=== PATIENT | female | born 1970 | race Caucasian/White ===

== ENCOUNTER 2018-10-19 16:21 | Emergency (ER) | payer MEDICAID ==
[~2018-10-19] VITALS: Ht 157.5 cm; Wt 65.0 kg
[~2018-10-19 16:21] MED LIST: ACET325T59 PO; DOXY-8 PO; HYDR1TAB PO; NITR100C6 PO; PROC25SU31 RC; VALS40TA2 PO; ZOF4T PO
[2018-10-19 16:28] VITALS: BP 127/82
[2018-10-19] MEDS ORDERED: TETanus/Pertussis (Acell)/Diphther VAC/PF (Tdap-Adult) 0.5ml syringe IM ONE (17:35)
[2018-10-19] MEDS ORDERED: CEPH500C5 PO (17:44)
== END 2018-10-19 17:48 | disposition home or self-care (01) ==
LOC: ER 16:21
DX: S46.812A Strain of other muscles, fascia and tendons at shoulder and upper arm level, left arm, initial encounter (principal); S00.83XA Contusion of other part of head, initial encounter; S69.81XA Other specified injuries of right wrist, hand and finger(s), initial encounter; F15.10 Other stimulant abuse, uncomplicated; I10 Essential (primary) hypertension; F12.10 Cannabis abuse, uncomplicated; Z88.5 Allergy status to narcotic agent; Z88.8 Allergy status to other drugs, medicaments and biological substances; Z79.899 Other long term (current) drug therapy; Z59.0 Homelessness; Y04.0XXA Assault by unarmed brawl or fight, initial encounter; Y93.89 Activity, other specified; Y92.89 Other specified places as the place of occurrence of the external cause; Y99.8 Other external cause status
CPT/HCPCS: 90471; 90715; 99283

== ENCOUNTER 2019-01-14 20:17 | Emergency (ER) | payer MEDICAID ==
[~2019-01-14] VITALS: Ht 157.5 cm; Wt 63.0 kg
[~2019-01-14 20:17] MED LIST changes: +CEPH500C5 PO
[2019-01-14 20:31] VITALS: BP 159/69
[2019-01-14] MEDS ORDERED: SULF1TAB49 PO (20:43)
[2019-01-14] MEDS ORDERED: CEPH500C5 PO (20:43)
== END 2019-01-14 21:03 | disposition home or self-care (01) ==
LOC: ER 20:18
DX: L03.116 Cellulitis of left lower limb (principal); L03.115 Cellulitis of right lower limb; I10 Essential (primary) hypertension; F12.90 Cannabis use, unspecified, uncomplicated; F15.90 Other stimulant use, unspecified, uncomplicated; Z98.890 Other specified postprocedural states; Z56.0 Unemployment, unspecified; Z59.0 Homelessness; Z88.5 Allergy status to narcotic agent; Z88.8 Allergy status to other drugs, medicaments and biological substances; Z79.899 Other long term (current) drug therapy
CPT/HCPCS: 99283

== ENCOUNTER 2019-06-04 21:09 | Emergency (ER) | payer MEDICAID ==
[2019-06-04 21:29] VITALS: BP 129/70
[2019-06-04] MEDS ORDERED: LIDOcaine 1% w/epiNEPHrine 1:200,000 30ml vial IM ONE (21:35)
[2019-06-04] MEDS ORDERED: TETanus/Pertussis (Acell)/Diphther VAC/PF (Tdap-Adult) 0.5ml syringe IM ONE (21:35)
[2019-06-04] MEDS ORDERED: SULF1TAB49 PO (21:52)
== END 2019-06-04 21:59 | disposition home or self-care (01) ==
LOC: ER 21:11
DX: L72.3 Sebaceous cyst (principal); L02.411 Cutaneous abscess of right axilla; I10 Essential (primary) hypertension; F12.90 Cannabis use, unspecified, uncomplicated; F15.90 Other stimulant use, unspecified, uncomplicated; Z98.890 Other specified postprocedural states; Z59.0 Homelessness; Z56.0 Unemployment, unspecified; Z86.14 Personal history of Methicillin resistant Staphylococcus aureus infection; Z79.899 Other long term (current) drug therapy; Z88.6 Allergy status to analgesic agent; Z88.5 Allergy status to narcotic agent
CPT/HCPCS: 10060; 90471; 99283

== ENCOUNTER 2019-07-09 17:12 | Emergency (ER) | payer MEDICAID ==
[~2019-07-09] VITALS: Ht 160 cm; Wt 63.6 kg
[2019-07-09 17:17] VITALS: BP 154/87
== END 2019-07-09 18:37 | disposition home or self-care (01) ==
LOC: ER 17:12
DX: M25.562 Pain in left knee (principal); I10 Essential (primary) hypertension; F12.90 Cannabis use, unspecified, uncomplicated; F15.90 Other stimulant use, unspecified, uncomplicated; F10.99 Alcohol use, unspecified with unspecified alcohol-induced disorder; Z56.0 Unemployment, unspecified; Z59.0 Homelessness; Z86.14 Personal history of Methicillin resistant Staphylococcus aureus infection; Z86.69 Personal history of other diseases of the nervous system and sense organs; Z88.5 Allergy status to narcotic agent; Z79.899 Other long term (current) drug therapy; Z88.8 Allergy status to other drugs, medicaments and biological substances; V29.9XXA Motorcycle rider (driver) (passenger) injured in unspecified traffic accident, initial encounter; Y93.89 Activity, other specified; Y92.89 Other specified places as the place of occurrence of the external cause; Y99.8 Other external cause status; Y90.9 Presence of alcohol in blood, level not specified
CPT/HCPCS: 29505; 73564; 99284

== ENCOUNTER 2021-08-23 13:10 | Emergency (ER) | payer MEDICAID ==
[~2021-08-23] VITALS: Ht 157.5 cm; Wt 63.6 kg
[~2021-08-23 13:10] MED LIST changes: -CEPH500C5 PO
[2021-08-23 13:20] VITALS: BP 156/81
[2021-08-23] MEDS ORDERED: CASIRIVIMAB/IMDEVIMAB inject. 10 ML in normal saline 100ml IV soln 100 ML IV ONE (15:00)
[2021-08-23] MEDS ORDERED: AMOX-422 PO (15:04)
[2021-08-23] MEDS ORDERED: PRED20TA PO (15:04)
[2021-08-23] MEDS ORDERED: ALBU6.7H9 INH (15:04)
[2021-08-23] MEDS ORDERED: BUDE180A INH (15:04)
[2021-08-23] MEDS ORDERED: CASIRIVIMAB/IMDEVIMAB (REGEN-COV) 600mg/600mg inject. SQ ONE ×4 (15:45)
== END 2021-08-23 17:22 | disposition home or self-care (01) ==
LOC: ER 13:11
DX: U07.1 COVID-19 (principal); J40 Bronchitis, not specified as acute or chronic; R05.9 Cough, unspecified; R51.9 Headache, unspecified; J02.9 Acute pharyngitis, unspecified; I10 Essential (primary) hypertension; F17.200 Nicotine dependence, unspecified, uncomplicated; F12.90 Cannabis use, unspecified, uncomplicated; F15.90 Other stimulant use, unspecified, uncomplicated; Z71.6 Tobacco abuse counseling; Z86.69 Personal history of other diseases of the nervous system and sense organs; Z86.14 Personal history of Methicillin resistant Staphylococcus aureus infection; Z98.890 Other specified postprocedural states; Z72.89 Other problems related to lifestyle; Z56.0 Unemployment, unspecified; Z59.00 Homelessness unspecified; Z88.6 Allergy status to analgesic agent; Z88.5 Allergy status to narcotic agent; Z79.2 Long term (current) use of antibiotics; Z79.899 Other long term (current) drug therapy
CPT/HCPCS: 71045; 87635; 99284; C9803; M0243; Q0244

== ENCOUNTER 2024-03-26 13:59 | Emergency (ER) | payer MEDICAID ==
[~2024-03-26] VITALS: Ht 157.5 cm; Wt 79.0 kg
[~2024-03-26 13:59] MED LIST changes: +ALBU6.7H14 INH; +BUDE180A INH
[2024-03-26 15:15] VITALS: BP 129/82; PULSE 78; O2SAT 97
[2024-03-26] MEDS: LIDOcaine 1% W/epiNEPHrine 1:100,000 20ml vial SQ ONE (15:40)
[2024-03-26] MEDS ORDERED: SULF1TAB49 PO (15:45)
[2024-03-26 15:55] VITALS: RESP 14; TEMP 98.4
== END 2024-03-26 15:56 | disposition home or self-care (01) ==
LOC: ER 14:00
DX: L02.415 Cutaneous abscess of right lower limb (principal); I10 Essential (primary) hypertension; F12.90 Cannabis use, unspecified, uncomplicated; F15.90 Other stimulant use, unspecified, uncomplicated; Z88.6 Allergy status to analgesic agent; Z88.5 Allergy status to narcotic agent; Z79.899 Other long term (current) drug therapy; Z79.2 Long term (current) use of antibiotics; Z79.1 Long term (current) use of non-steroidal anti-inflammatories (NSAID); Z98.890 Other specified postprocedural states
CPT/HCPCS: 10060; 99283; J3490